=== PATIENT | male | born 2005 | race African-American/Black ===

== ENCOUNTER 2024-09-25 20:12 | Emergency (ER) | payer SELFPAY ==
[~2024-09-25] VITALS: Ht 175.3 cm; Wt 59.0 kg
[2024-09-25 20:22] VITALS: O2SAT 98
[2024-09-25] MEDS: KETOROLAC 15MG/ML VIAL IM ONE (21:08)
[2024-09-25] MEDS ORDERED: NAPR-1176 MT (21:59)
[2024-09-25] MEDS ORDERED: LIDO700A15 TP (21:59)
[2024-09-25 23:19] VITALS: BP 136/67; PULSE 95; RESP 18; TEMP 36.66960; O2SAT 98
== END 2024-09-25 23:21 | disposition home or self-care (01) ==
LOC: ER 20:40
DX: M54.9 Dorsalgia, unspecified (principal); G40.909 Epilepsy, unspecified, not intractable, without status epilepticus; Z98.890 Other specified postprocedural states; V49.9XXA Car occupant (driver) (passenger) injured in unspecified traffic accident, initial encounter; Y93.89 Activity, other specified; Y92.89 Other specified places as the place of occurrence of the external cause; Y99.8 Other external cause status
CPT/HCPCS: 99283; 96372; J1885